=== PATIENT | male | born 1940 | race Caucasian/White ===

== ENCOUNTER 2019-07-01 13:39 | Outpatient (CLI) | payer MEDICARE, OTHER, SELFPAY ==
--- NOTE | 2019-07-01 14:01 | MR_ITS ---
WS: [id number] MRI HEAD WITHOUT CONTRAST TECHNIQUE: Sagittal T1, T2 axial, T2 axial FLAIR, axial and coronal T1 images, axial susceptibility w eighted imaging, axial diffusion weighted images, and coronal T2 images were obtained. CLINICAL INFORMATION: HEADACHE COMPARISON: CT head FINDINGS: No evidence of restricted diffusion to suggest acute ischemia. Ventricular system and basal cisterns are patent. No hydrocephalus. Mild small vessel changes. Moderate parenchymal volume loss. Normal vascular flow voids at the skull base. No extra-axial fluid collections. Paranasal sinuses are well aerated. Mastoid air cells are wel l aerated. No hemosiderin on susceptibly weighted images. Normal optic chiasm and pituitary infundibu lum. Temporal lobes and hippocampal formations demonstrate mild symmetric atrophy. MR/MR head wo con* [id number] IMPRESSION: 1. No evidence of restricted diffusion to suggest acute ischemia. 2. Mild small vessel changes with moderate parenchymal volume loss. 3. No extra-axial fluid collections. No evidence of mass or mass effect. 4. No hemosiderin on susceptibly weighted images. 5. Mild symmetric atrophy involving the temporal lobes and hippocampal formati ons.
== END 2019-07-01 13:40 | disposition home or self-care (01) ==
LOC: RADSHAW 13:53
PROVIDERS: Family Provider Family Medicine; Visit Provider Family Medicine
DX: R51 Headache (principal)
CPT/HCPCS: 70551

== ENCOUNTER 2021-05-16 09:40 | Emergency (ER) | payer MEDICARE, OTHER, SELFPAY ==
[2021-05-16 09:54] VITALS: BP 170/97; PULSE 54; RESP 16; TEMP 36.9; O2SAT 97; BMI 31.5
--- NOTE | 2021-05-16 11:22 | ECG_ITS ---
[facility] Test Date: 2021-05-16 Pat Name: Stiven Washington Department: Room: Gender: Male Grades 1 Thru 5 Teacher: : 1940 Requested By: Prashanth Christensen Order Number: [id number] Iggy MD: Deric Thomas M.D. Measurements Intervals [place] Rate: 48 P: 46 FL: 146 QRS: 4 QRSD: 89 T: 39 QT: 466 QTc: 420 Interpretive Statements SINUS BRADYCARDIA POSSIBLE LEFT ATRIAL ENLARGEMENT [-0.1mV P-WAVE IN V1/V2] Compared to ECG 03/29/2019 12:27:35 No significant changes Electronically Signed On 05-16-2021 22:44:06 EXCEPTIONAL NEEDS TEACHER by Deric Thomas M.D. [email or web address] [email or web address] [email or web address] surgical hospital.[id number]
[2021-05-16 11:36] VITALS: BP 173/90; PULSE 84; RESP 16; O2SAT 96
[2021-05-16 12:02] LABS: Basophils % 0.6 %; Eosinophils # 0.1 10^3/uL (0.0-0.8); Eosinophils % 1.3 %; Hematocrit 39.5 % (42.0-52.0); Hemoglobin 13.8 g/dL (11.7-16.6); Lymphocytes # 2.5 10^3/uL (0.8-4.8); Lymphocytes % 39.1 %; Mean Corpuscular HGB Conc 34.9 g/dL (30.0-36.0); Mean Corpuscular Hemoglobin 32.2 pg (28.0-34.0); Mean Corpuscular Volume 92.3 fl (80-94); Mean Platelet Volume 11.8 fL (7.4-10.4); Monocytes # 0.7 10^3/uL (0.2-0.9); Monocytes % 10.6 %; Neutrophils # 3.06 10^3/uL (1.8-7.7); Neutrophils % 48.1 %; Nucleated Red Blood Cells % 0 %; Platelet Count 173 10^3/cmm (130-400); Red Blood Count 4.28 10^6/uL (4.1-5.3); Red Cell Distribution Width 13.7 % (12.1-15.1); White Blood Count 6.4 10^3/uL (4.0-10.0)
--- NOTE | 2021-05-16 12:05 | XR_ITS ---
WS: [id number] Exam: XR chest 1V portable [id number] Date/Time of Exam: 05/16/2021 12:05 PM Reason For Exam: dyspnea/cough Comparison 03/29/2019. The lungs are clear and fully expanded. Normal cardiomediastinal silhouette. Costophrenic angles are sharp. No pleural effusion. Bony structures are intact. XR/XR chest 1V portable [id number] IMPRESSION: 1. No acute cardiopulmonary finding.
--- NOTE | 2021-05-16 12:13 | W.ED.GENADLT ---
HPI - General Adult General: Chief complaint: General Medical Stated complaint: SENT BY PCP FOR SPIKING B/P Time Seen by Provider: 05/16/21 11:19 History of Present Illness: HPI narrative: 80-year-old male presents emergency room with complaint of increased blood pressure. Blood pressure is elevated and he is having palpitations for last couple of days. He was seen previously for this and supposed to be set up for stress test at [facility] logistical complication happened and that was never completed. His blood pressures been in the 170s and 180s at home he denies any difficulty speech swallowing or vision. He is not having difficulty breathing denies any chest pain. He currently takes metoprolol for blood pressure but no other medications. Onset (ago): hour(s) Severity: moderate Relieving factors: none Exacerbating factors: none Associated symptoms: Deny chest pain, confusion, cough, diaphoresis, decreased appetite, dyspnea, fevers/chills, headache(s), malaise, nausea, rash, palpitations, seizures, short of breath, syncope, vomiting or weakness Treatments prior to arrival: none Review of Systems Const: Denies: malaise or diaphoresis ENMT: Denies: throat pain, ear or mastoid pain, nasal discharge or nasal congestion Card: Denies: chest pain, palpitations or syncope Resp: Denies: dyspnea GI: Denies: nausea or vomiting : Denies: flank pain, dysuria, urinary frequency or urinary urgency Skin/Breast: Denies: rash Neuro: Denies: headache(s) or confusion PFSH ED PFSH: Medical History Chest pain Dyspnea GERD (gastroesophageal reflux disease) Family History Grandfather CAD (coronary artery disease) later in life Father Cancer Dementia Mother Dementia Denies family history of Diabetes Clotting disorder Chronic kidney disease (CKD) Suicide Anesthesia complication Bleeding disorder Lung disease Stroke Social History Smoking and tobacco status: former smoker Alcohol intake: never Physical Exam Const: COMMON NORMALS: no acute distress GENERAL APPEARANCE: cooperative and comfortable ORIENTATION/CONSCIOUSNESS: Yes awake, Yes oriented to person, Yes oriented to place and Yes oriented to time HENMT: COMMON NORMALS: normocephalic, atraumatic and hearing grossly normal bilaterally HEAD & SCALP: normocephalic and atraumatic Neck/C-Spine: COMMON NORMALS: no JVD Resp: COMMON NORMALS: normal respiratory effort, No retractions, No use of accessory muscles and clear to auscultation bilaterally AUSCULTATION: clear to auscultation bilaterally Cardio: COMMON NORMALS: no JVD, regular rate, regular rhythm and No murmurs present (Cardio) RATE: regular rate RHYTHM: regular rhythm GI: COMMON NORMALS: Soft to palpation and No hepatosplenomegaly present AUSCULTATION: Yes normoactive bowel sounds PALPATION: Yes Soft to palpation, No Tenderness to palpation present (GI), No Guarding due to palpation present (GI) and Yes No hepatosplenomegaly present Extremity: COMMON NORMALS: normal to inspection, capillary refill normal, no clubbing, cyanosis or edema, no calf tenderness and no pedal edema Neuro: SENSORIUM/ORIENTATION: Yes oriented to person, Yes oriented to place and Yes oriented to time Skin: COMMON NORMALS: no rashes or lesions noted GENERAL SKIN EXAM: no rashes or lesions noted Course Vital Signs: Vital signs: Vital Signs Temperature 98.5 F 05/16/21 09:54 Pulse Rate 59 L 05/16/21 15:38 Respiratory Rate 18 05/16/21 14:19 Blood Pressure 146/87 05/16/21 15:38 Pulse Oximetry 97 05/16/21 15:38 MDM - General Adult MDM Narrative: Medical decision making narrative: Labs imaging EKG reviewed with patient. He is still having some dyspnea on exertion. Patient does need stress test. This is already been initiated evidently through his metabolic specialist office recommend that he contact metabolic specialist office and they can complete the process. Suspect there may be a prior authorization in process. He is not having any chest pain at this time. Have him add amlodipine and isosorbide mononitrate as well as aspirin. Have him follow-up with his metabolic specialist within the next few days return if has further problems. Lab Data: Labs: Lab Results 05/16/21 05/16/21 05/16/21 11:33 11:33 11:33 WBC 6.4 10^3/uL 10^3/ uL (4.0-10.0) RBC 4.28 10^6/uL 10^6 /uL (4.1-5.3) Hgb 13.8 g/dL g/dL (11.7-16.6) Hct 39.5 % L % (42.0-52.0) MCV 92.3 fl fl (80-94) MCH 32.2 pg pg (28.0-34.0) MCHC 34.9 g/dL g/dL (30.0-36.0) RDW 13.7 % % (12.1-15.1) Plt Count 173 10^3/cmm 10^3 /cmm (130-400) MPV 11.8 fL H fL (7.4-10.4) Neut % (Auto) 48.1 % % Lymph % (Auto) 39.1 % % Avery % (Auto) 10.6 % % Eos % (Auto) 1.3 % % Baso % (Auto) 0.6 % % Neut # (Auto) 3.06 10^3/uL 10^3 /uL (1.8-7.7) Lymph # (Auto) 2.5 10^3/uL 10^3/ uL (0.8-4.8) Avery # (Auto) 0.7 10^3/uL 10^3/ uL (0.2-0.9) Eos # (Auto) 0.1 10^3/uL 10^3/ uL (0.0-0.8) Baso # (Auto) 0.0 10^3/uL 10^3/ uL (0.0-0.1) Nucleated RBC % (a uto) 0 % % Nucleated RBCs # 0.0 /100WBC /100W BC Sodium 136 mmol/L mmol/L (136-145) Potassium 4.5 mmol/L mmol/L (3.5-5.1) Chloride 102 mmol/L mmol/L (98-107) Carbon Dioxide 24 mmol/L mmol/L (22-29) Anion Gap 14.5 (5-19) BUN 17 mg/dL mg/dL (8-23) Creatinine 0.6 mg/dL L mg/dL (0.7-1.2) GFR Calculation Not Reportable Glucose 92 mg/dL mg/dL (65-115) Calculated Osmolal ity 283 mOsm/kg L mOs m/kg (285-295) Calcium 8.5 mg/dL mg/dL (8.5-10.5) Total Bilirubin 0.4 mg/dL mg/dL (0.15-1.2) AST 14 U/L U/L (0-40) ALT 10 U/L U/L (0-41) Alkaline Phosphata se 53 IU/L IU/L (40-130) Troponin T Baselin e 18 ng/L H ng/L (0-15) Troponin T 120 Min jacqui Delta Troponin T Total Protein 6.1 g/dL L g/dL (6.6-8.7) Albumin 3.7 g/dL g/dL (3.5-5.2) Globulin 2.4 g/dL g/dL (1.3-4.6) Urine Color Urine Appearance Urine pH Ur Specific Gravit y Urine Protein Urine Glucose (UA) Urine Ketones Urine Blood Urine Nitrate Urine Bilirubin Urine Urobilinogen Ur Leukocyte Susan ase Urine RBC Urine WBC Ur Squamous Epith Cells Amorphous Sediment Urine Bacteria Urine Mucus 05/16/21 05/16/21 11:56 13:47 WBC RBC Hgb Hct MCV MCH MCHC RDW Plt Count MPV Neut % (Auto) Lymph % (Auto) Avery % (Auto) Eos % (Auto) Baso % (Auto) Neut # (Auto) Lymph # (Auto) Avery # (Auto) Eos # (Auto) Baso # (Auto) Nucleated RBC % (a uto) Nucleated RBCs # Sodium Potassium Chloride Carbon Dioxide Anion Gap BUN Creatinine GFR Calculation Glucose Calculated Osmolal ity Calcium Total Bilirubin AST ALT Alkaline Phosphata se Troponin T Baselin e Troponin T 120 Min jacqui 16.42 ng/L H ng/L (0-15) Delta Troponin T -1.58 ABS# L ABS# (0-10) Total Protein Albumin Globulin Urine Color Yellow (Yellow) Urine Appearance Clear (CLEAR) Urine pH 5 (5-7) Ur Specific Gravit y 1.020 (1.005-1.030) Urine Protein 1+ H (Negative) Urine Glucose (UA) Norm (Normal) Urine Ketones 1+ H (Negative) Urine Blood Neg (Negative) Urine Nitrate Negative (Negative) Urine Bilirubin Neg (Negative) Urine Urobilinogen Norm mg/dL mg/dL (Negative) Ur Leukocyte Susan ase Negative (Negative) Urine RBC None /hpf /hpf (0-2) Urine WBC 0-4 /hpf H /hpf (0-5) Ur Squamous Epith Cells 0-4 /hpf H /hpf (0-5) Amorphous Sediment Not Reportable Urine Bacteria Trace /hpf /hpf (NONE) Urine Mucus Trace /hpf /hpf Discharge Plan Discharge Patient Disposition: Home Clinical Impression: Hypertensive urgency, HUGO (dyspnea on exertion) Condition: Stable Prescriptions: New isosorbide mononitrate 30 mg tablet extended release 24 hr 30 mg PO DAILY Qty: 30 RF: 0 amlodipine 10 mg tablet 10 mg PO DAILY Qty: 30 RF: 0 aspirin 81 mg tablet,delayed release (DR/EC) 81 mg PO DAILY Qty: 30 RF: 0 No Action Xtandi 40 mg tablet 160 mg PO BEDTIME RF: 0 omeprazole 20 mg capsule,delayed release(DR/EC) 20 mg PO QAM RF: 0 metoprolol tartrate 25 mg tablet See Rx Instructions .ROUTE .COMPLEX RF: 0 nitroglycerin [Nitrostat] 0.4 mg tablet, sublingual 0.4 mg sublingual Q5M PRN (Reason: chest pain) 30 Days Qty: 30 RF: 0 zinc 50 mg Tablet 50 mg PO DAILY RF: 0 Vitamin D3 125 mcg (5,000 unit) Tablet 125 mcg PO DAILY RF: 0 Cardio-Plus 2 tab PO BID RF: 0 Curcumin Tabs 1 tab PO QAM RF: 0 Otc Gallbladder Pill 2 tab PO BID RF: 0 Discharge Orders: Discharge ED (Routine); Ordered 05/16/21 Ordered By: Prashanth Lemons Referrals: Aamir Beltre [Primary Care Provider] - Patient Instructions: Opioid Safety Coding Level of Care Code ED Facilities Engineering Manager for Saad Bahena
[2021-05-16 12:24] LABS: Alanine Aminotransferase 10 U/L (0-41); Albumin Level 3.7 g/dL (3.5-5.2); Alkaline Phosphatase 53 IU/L (40-130); Aspartate Amino Transferase 14 U/L (0-40); Blood Urea Nitrogen 17 mg/dL (8-23); Calcium 8.5 mg/dL (8.5-10.5); Carbon Dioxide 24 mmol/L (22-29); Chloride 102 mmol/L (98-107); Globulin 2.4 g/dL (1.3-4.6); Glucose 92 mg/dL (65-115); Osmolality Calculated 283 mOsm/kg (285-295); Sodium 136 mmol/L (136-145); Total Bilirubin 0.4 mg/dL (0.15-1.2); Total Protein 6.1 g/dL (6.6-8.7)
[2021-05-16 12:25] LABS: Anion Gap 14.5 (5-19); Potassium 4.5 mmol/L (3.5-5.1); Troponin(5th) Baseline 18 ng/L (0-15)
[2021-05-16 12:31] VITALS: BP 181/91; PULSE 53; RESP 18; O2SAT 95
[2021-05-16] MEDS: hyDRALAzine 20 mg/mL INJ 1 mL 10 MG IVP ×2 (13:17→14:19)
[2021-05-16] MEDS: amlodipine 10 mg Tablet PO (13:17)
--- NOTE | 2021-05-16 13:22 | ECG_ITS ---
[facility] Test Date: 2021-05-16 Pat Name: Stiven Washington Department: Room: Gender: Male Electronic Security Technician: : 1940 Requested By: Prashanth Christensen Order Number: [id number] Iggy MD: Deric Thomas M.D. Measurements Intervals [place] Rate: 53 P: 50 CO: 146 QRS: -1 QRSD: 106 T: 40 QT: 468 QTc: 439 Interpretive Statements SINUS BRADYCARDIA POSSIBLE LEFT ATRIAL ENLARGEMENT [-0.1mV P-WAVE IN V1/V2] Compared to ECG 05/16/2021 11:27:28 No significant changes Electronically Signed On 05-16-2021 22:51:45 GRADE TEACHER by Deric Thomas M.D. [id number]
[2021-05-16 13:39] LABS: Add Urine Microscopic? YES; Bilirubin Urine Neg (Negative); Blood Urine Neg (Negative); Glucose Urine UA Norm (Normal); Ketones Urine 1+ (Negative); Leukocyte Esterase Urine Negative (Negative); Nitrate Urine Negative (Negative); Protein Urine 1+ (Negative); Urine Appearance Clear (CLEAR); Urine Color Yellow (Yellow); Urobilinogen Urine Norm (Negative); pH Urine 5 (5-7)
[2021-05-16 13:41] LABS: WBC Urine 0-4 /hpf (0-5)
[2021-05-16 13:42] LABS: Add Urine Culture? No; Bacteria Urine TRACE /hpf; Mucus Urine TRACE /hpf; Squamous Epithelial Cell Urine 0-4 /hpf (0-5)
[2021-05-16 14:19] VITALS: BP 183/105; PULSE 54; RESP 18; O2SAT 98
[2021-05-16] MEDS: enalaprilat 1.25 mg/mL Inj IVP (14:19)
[2021-05-16] MEDS: lisinopril 10 mg Tablet 20 MG PO (14:19)
[2021-05-16 14:29] LABS: Troponin 5 2HR 16.42 ng/L (0-15)
[2021-05-16 14:30] LABS: Troponin 5 2HR Delta -1.58 ABS# (0-10)
[2021-05-16 15:38] VITALS: BP 146/87; PULSE 59; O2SAT 97
== END 2021-05-16 15:37 | disposition home or self-care (01) ==
PROVIDERS: Physician Assistant; Emergency Provider Family Medicine; PCP Student in an Organized Health Care Education/Training Program
DX: R06.00 Dyspnea, unspecified (principal); I16.0 Hypertensive urgency; Z87.891 Personal history of nicotine dependence
CPT/HCPCS: 36415; 71045; 80053; 81001; 84484; 85025; 93005; 96374; 96375; 99283; J0360; J3490

== ENCOUNTER 2021-05-22 07:36 | Outpatient (CLI) | payer MEDICARE, OTHER, SELFPAY ==
[2021-05-22 07:40] VITALS: BMI 32.3
--- NOTE | 2021-05-22 07:42 | ECG_ITS ---
[facility] Test Date: 2021-05-22 Pat Name: Stiven Washington Department: Room: Gender: Male Finisher Brush: : 1940 Requested By: Deric Thomas Order Number: [id number] Iggy MD: Deric Thomas M.D. Interpretive Statements NAME OF STUDY: LEXISCAN SESTAMIBI STRESS TEST INDICATION: Chest Pain,/ RESULTS TO CATARINA TORRES PROCEDURE: At the baseline, the EKG revealed sinus bradycardia with a rate of 54 bpm. The baseline blood pressure was 162/98 mm Hg with a heart rate of 56 beats/min. Lexiscan was infused over a period of 20 seconds. A total of 0.4 milligrams of Lexiscan was infused. The stress phase was continued for a total of 5 minutes. Heart rate at the end of the stress phase was 86 with a blood pressure 116/77. The EKG at the peak infusion revealed no significant changes. Sestamibi was injected 20 seconds after the Lexiscan infusion. Blood pressure at the end of the recovery phase was 135/88 with a heart rate of 73 per minute. CONCLUSION: 1. No significant EKG changes with the LexiScan infusion 2. No LexiScan induced chest pain or cardiac arrhythmia 3. Normal blood pressure and heart rate response 4. Sestamibi/sestamibi perfusion scan pending; see separate report. Electronically Signed On 06-01-2021 10:18:03 INSULATION CUTTER by Deric Thomas M.D. [id number]
--- NOTE | 2021-05-22 07:43 | NMCV_ITS ---
NM dex perf SPECT r/s* [id number] Stiven Washington Age: 80 Gender: M : 1940 Exam Date: 05/22/2021 07:43 Ordering Phys: Deric Thomas MD ([email or web address]) Technologist: MYRON Martinez Exam Location: [facility] Indications: SHORTNESS OF BREATH, CHEST PAIN STRESS TEST Please see separate stress test report in [facility] for full findings IMAGE PROTOCOL Rest/Stress 1 Lexiscan Day Radiopharmaceutical Dose (mCi) Administration Site Administered by Rest: Tc-99m 10.8 IV MYRON Ledesma Sestamibi Stress:Tc-99m 33.0 IV MYRON Martinez Sestamigerardo Rest: 22-May-2021 60 Discovery 630 Stress: 22-May-2021 30 Discovery 630 0.4mg Lexiscan. Supine position only as patient was unable to lay prone. SPECT RESULTS Technical Quality: Excellent Raw Data Analysis: Normal Image Corrections: No attenuation or motion correction applied Summed Stress Score: 1 Summed Rest Score: 2 Summed Difference Score: 1 PERFUSION FINDINGS A small area of slightly decreased tracer uptake in the apical anterior wall region with some reversibility. FUNCTIONAL RESULTS (calculated via Gated SPECT) Stress Image LV EF (%): 75 Stress EDV (mL):76 TID: 1.21 Stress ESV (mL):19 FUNCTIONAL FINDINGS: Segmental wall motion analysis revealing no gross wall motion normalities. IMPRESSIONS 1. Myocardial perfusion imaging revealing small area of reversible defect in the apical anterior wall region, suggestive of ischemia in the distribution of the left anterior descending artery. Elevated transient ischemic dilatation ratio also may suggest endocardial ischemia. (1.21). 2. Normal LV ejection fraction 75%. 3. LV wall motion analysis revealing no gross wall motion abnormalities. 4. Normal LV volume. No similar previous studies are available for comparison Dr Deric Thomas MD [facility] (Electronically Signed) Final Date: 30 May 2021 06:00 S
[2021-05-22] MEDS: regadenoson 0.4 Mg/5 ml Syringe IVP (09:57)
[2021-05-22 10:14] VITALS: BP 135/88; PULSE 76
== END 2021-05-22 07:37 | disposition home or self-care (01) ==
LOC: CDL 07:37
PROVIDERS: PCP Student in an Organized Health Care Education/Training Program; Visit Provider Internal Medicine Cardiovascular Disease
DX: R07.9 Chest pain, unspecified (principal); R06.02 Shortness of breath
CPT/HCPCS: 78452; 93017; A9500; J2785

== ENCOUNTER → 2021-09-11 11:36 | Outpatient (BNVA) | payer MEDICARE, OTHER, SELFPAY | PROVIDERS: PCP Student in an Organized Health Care Education/Training Program; Visit Provider Internal Medicine Cardiovascular Disease | DX: R94.39 Abnormal result of other cardiovascular function study (principal); R07.89 Other chest pain; R03.0 Elevated blood-pressure reading, without diagnosis of hypertension; R06.00 Dyspnea, unspecified; I47.1 Supraventricular tachycardia; Z87.891 Personal history of nicotine dependence | CPT/HCPCS: 80048; 85025; 85610; 86850; 86900; 87635; 99215 ==

== ENCOUNTER 2021-09-11 12:44 | Outpatient (CLI) | payer MEDICARE, OTHER, SELFPAY ==
[2021-09-11 13:41] LABS: Basophils # 0.1 10^3/uL (0.0-0.1); Basophils % 0.9 %; Eosinophils # 0.1 10^3/uL (0.0-0.8); Eosinophils % 1.2 %; Hematocrit 39.7 % (42.0-52.0); Hemoglobin 13.3 g/dL (11.7-16.6); Lymphocytes # 1.9 10^3/uL (0.8-4.8); Lymphocytes % 33.1 %; Mean Corpuscular HGB Conc 33.5 g/dL (30.0-36.0); Mean Corpuscular Volume 95.7 fl (80-94); Mean Platelet Volume 11.2 fL (7.4-10.4); Monocytes # 0.7 10^3/uL (0.2-0.9); Monocytes % 11.5 %; Neutrophils # 3.03 10^3/uL (1.8-7.7); Neutrophils % 52.8 %; Nucleated Red Blood Cells % 0 %; Platelet Count 157 10^3/cmm (130-400); Red Blood Count 4.15 10^6/uL (4.1-5.3); Red Cell Distribution Width 12.9 % (12.1-15.1); White Blood Count 5.7 10^3/uL (4.0-10.0)
[2021-09-11 13:52] LABS: Prothrombin Time (Patient) 12.4 Seconds (12.0-15.1)
[2021-09-11 14:12] LABS: Anion Gap 13.5 (5-19); Blood Urea Nitrogen 16 mg/dL (8-23); Calcium 8.8 mg/dL (8.5-10.5); Carbon Dioxide 26 mmol/L (22-29); Chloride 105 mmol/L (98-107); Glucose 106 mg/dL (65-115); Osmolality Calculated 292 mOsm/kg (285-295); Potassium 4.5 mmol/L (3.5-5.1); Sodium 140 mmol/L (136-145)
[2021-09-11 15:27] LABS: Adenovirus Not Detected (NOT DETECT); Chlamydia Pneumoniae Not Detected (NOT DETECT); Coronavirus 229E,HKU1,NL63,OC4 Not Detected (NOT DETECT); Human Metapneumovirus Not Detected (NOT DETECT); Human Rhinovirus/Enterovirus Not Detected (NOT DETECT); Influenza A Not Detected (NOT DETECT); Influenza A H1 Not Detected (NOT DETECT); Influenza A H1-2009 Not Detected (NOT DETECT); Influenza A H3 Not Detected (NOT DETECT); Influenza B Not Detected (NOT DETECT); Mycoplasma Pneumoniae Not Detected (NOT DETECT); Parainfluenza Virus Type 1 Not Detected (NOT DETECT); Parainfluenza Virus Type 2 Not Detected (NOT DETECT); Parainfluenza Virus Type 3 Not Detected (NOT DETECT); Parainfluenza Virus Type 4 Not Detected (NOT DETECT); Respiratory Syncytial Virus A Not Detected (NOT DETECT); Respiratory Syncytial Virus B Not Detected (NOT DETECT); SARS-COV-2 Not Detected (NOT DETECT)
== END 2021-09-11 12:45 | disposition home or self-care (01) ==
LOC: LAB 12:47
PROVIDERS: PCP Student in an Organized Health Care Education/Training Program; Visit Provider Internal Medicine Cardiovascular Disease
DX: R94.39 Abnormal result of other cardiovascular function study (principal); R07.89 Other chest pain
CPT/HCPCS: 80048; 85025; 85610; 86850; 86900; 87635

== ENCOUNTER 2021-09-17 09:50 | Observation (INO) | payer MEDICARE, OTHER, SELFPAY ==
[2021-09-17] VITALS (34 sets, daily range): BP systolic 127–176; BP diastolic 70–107; PULSE 47–70; RESP 13–24; TEMP 35.6–36.7; O2SAT 94–98; BMI 34.2
--- NOTE | 2021-09-17 06:03 | XACV_ITS ---
Exam Room: 2 Ht: 178 cm Wt: 108 kg BSA: 2.35 m2 Gender: Male : 1940 Exam Priority: Routine Procedure(s): Procedure Description: Diagnostic procedure Procedure Description: PCI procedure Procedure Description: Drug Eluting Coronary Stent Procedure Description: PTCA Procedure Description: Coronary Atherectomy Procedure Description: Miscellaneous Procedure Description: ACT Procedure Description: Coronary Angiography William NUÑEZ; Diagnostic Cath Status: Elective Diagnostic Findings * Left anterior descending artery is a medium caliber vessel which wrap around the LV apex minimally. The proximal segment of the LAD was found to have diffuse disease which tapers to a high-grade stenosis of around 95% towards the origin of the first diagonal branch. The first diagonal branch was found to have 60 to 70% diffuse disease. The left anterior descending artery was found to have high-grade stenosis of 70 to 80% at the mid segment and in the distal segment of the artery.. * The left circumflex artery is a medium caliber vessel which gives off multiple obtuse marginal branches. The first obtuse marginal branches are now around 60% ostial narrowing. The second obtuse marginal artery was found to have minimal intimal irregularities near to the ostium. * The right coronary artery is a medium to large caliber ectatic vessel which was found to have 20 to 40% diffuse narrowing in the proximal ,mid and distal segments. The PLV branch was found to have a 50 to 60% ostial narrowing in one of the side branches. PCI Status: Elective PCI Indication: New Onset Angina <= 2 months Interventional Findings * Procedure detail: We engaged left main artery with XB 3.5 guide catheter. 0.014 run-through guidewire was used to cross LAD stenosis and was put in distal vessel. We initially performed balloon angioplasty of proximal to distal vessel using 2.5 x 15 mm semicompliant balloon. This was followed by placement of 3.0 x 38 mm resolute Bandar drug-eluting stent in proximal LAD. There was an intervening area that was not covered with stents. We placed a stent in mid LAD measuring 2.75 x 12 mm. Proximal stent was postdilated with 3.25 x 12 mm NC balloon. At this time apical vessel was noted to have some wire dissection. There was nonflow limiting. We left it for medical therapy later. Guidewire and guide catheter were removed. Patient left the D[facility] Pipeman in a stable condition.. * Proximal Left Anterior Descendin% stenosis treated with a AB TREK 2.50X15 RX BALLOON, AB TREK 3.00X15 RX BALLOON, MDT NC EUPHORA RX [id number] BALLOON, and MDT R BANDAR 3.0X38 MARLYN. * Mid Left Anterior Descendin% stenosis treated with a AB TREK 2.50X15 RX BALLOON. * Mid Left Anterior Descendin% stenosis treated with a MDT R BANDAR 2.75X12 MARLYN. * Distal Left Anterior Descendin% stenosis treated with a MDT R BANDAR 2.75X30 MARLYN. Conclusions 1. This is an 81-year-old white male with a history of hypertension, dyslipidemia and COPD, presents with increasing shortness of breath and some chest discomfort. He had a myocardial perfusion imaging which revealed a small area of ischemia in the distribution of the left anterior descending artery. Because of the ongoing worsening of the symptoms, in order to further evaluate the coronary status, a cardiac catheterization was recommended. Patient underwent left heart catheterization with left and right coronary angiogram and LV angiogram today. The findings are as follows. 2. High-grade multiple lesions in the left anterior descending artery including the proximal segment. Mild to moderate disease in the circumflex artery and mild diffuse disease in the right coronary artery. LVEDP of 17 mmHg. LV ejection fraction of 50%. Wall motion normalities as mentioned above. 3. Status post successful revascularization of proximal to distal LAD with MARLYN x3. 4. Proximal Left Anterior Descending was treated with a Balloon, Balloon, Balloon, and Drug Eluting Stent. 5. Mid Left Anterior Descending was treated with a Balloon. 6. Mid Left Anterior Descending was treated with a Drug Eluting Stent. 7. Distal Left Anterior Descending was treated with a Drug Eluting Stent. Recommendations * Aspirin and Plavix for at least 1 year. * Transfer to [facility]. * High intensity statin therapy. * Outpatient cardiology follow-up in 4 weeks. Interventional RX Recommendation: PCI w/o planned CABG Diagnostic RX Recommendation: PCI w/o planned CABG Anticoagulation: Heparin Ventriculography Ejection Fraction: 50.0 % Left Ventriculography Findings: * LV gram was performed in the DAVILA projection. The study was of suboptimal quality. The LV gram revealed mild hypokinesia of the anteroapical region. No filling defects were noted. The LVEDP was 17 mmHg. The LV ejection fraction was estimated to be around 50%. Pressures Phase:Rest AO : 105 / 65 ( 84 ) @ 8:32:00 AM 148 / 73 ( 104 ) @ 8:43:00 AM 150 / 74 ( 104 ) @ 8:43:00 AM 130 / 71 ( 96 ) @ 8:59:00 AM 119 / 66 ( 90 ) @ 9:06:00 AM 172 / 87 ( 124 ) @ 9:09:00 AM 161 / 90 ( 119 ) @ 9:51:00 AM 145 / 73 ( 102 ) @ 9:58:00 AM LV : 148 / 0 / 17 @ 8:42:00 AM 142 / 0 / 26 @ 8:43:00 AM 145 / 0 / 24 @ 8:43:00 AM Valves Phase:DefaultPhase AV : 0.0 @ 9:38:31 AM AV Mean Gradient: 0.0 @ 9:38:31 AM Clinical Evaluation EBL: 5mL-10mL Procedural Details Procedure Consent Obtained. Admit Source: Out Patient. Pre-Procedure Time Out. Identified patient by full name and date of as verbalized by the patient/guarantor. Does the consent match the physician's order: Yes. Accurate & Complete Informed Consent: Yes. Inpatient/Outpatient History & Physical on Chart: Yes. If H&P is completed, is and addenduem needed: N/A; If yes, is the addendum complete: N/A. Visualize and Verify Site with Patient/Guarantor: N/A. Relevant Radiology Images available: N/A. The risks, benefits, and alternatives of sedation and/or procedure were discussed by physician. The patient agrees to continue. Procedure started. [facility] Clinical Fraility Score: 3: Managing Well. Dredge Pipeman Indications: Worsening Angina. Chest Pain Symptom Assessment: Atypical Angina. Correct patient, site and procedure confirmed by cath team. Current diagnosis: Chest Pain. PERRLA. 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 Lungs clear x 5 lobes. IV Site on Arrival: 20 gauge in the right anticubital. IV Fluids: 0.9% NaCl at KVO. 0 mL infused prior to laboratory animal caretaker. Pre Procedural Pulses: bilateral dorsalis pedis was 3+. Pre Procedural Pulses: bilateral radial was 2+. Oxygen started at 2liters/min via nasal canula. right groin was prepped with chloroprep then draped in the usual sterile fashion. right radial was prepped with chloroprep then draped in the usual sterile fashion. Physician notified. Baseline sample Acquired. HR: 55 BPM. Physician arrived. Physician scrubbed in. Immediate Pre-Procedure Time Out. Correct Patient: Yes; Correct Procedure: Yes; Correct Site: Yes; Correct Patient Position: Yes; Correct Supplies: Yes; Dried Flammable Prep: Yes; Blood Products Available: N/A;. IV to R AC infiltrated. IV discontinued and new 20g IV started in L AC. Lidocaine 1% infiltrated to the right radial. Arterial access obtained. A 5french Spike catheter in over wire. Multiple views taken of left coronary artery. Catheter out. A 5 italian JR4 catheter in over wire. Multiple views taken of right coronary artery. Catheter out. A 5 italian Angled Pig catheter in over wire. EDP Sample taken: LV 148/-1,17; HR: 60 BPM; SpO2: 98%. LV gram performed in DAVILA @ 10 mL/second for a total of 30 mL. EDP Sample taken: LV 142/0,26; HR: 55 BPM; SpO2: 98%. Pullback taken: LV 145/-1,24; AO 148/73(104); Mean: 0mmHg, Peak to Peak: 0mmHg, SEP: 13sec/min; HR: 58 BPM; SpO2: 98%. Catheter out. Dr Fam notified to review films. Patient's family updated. Side port of raidal sheath flushed periodically to maintain patencey. Physician scrubbed out. Physician review of cine films. ACT drawn. Results 153 seconds. Therapeutic limits - pre-heparin administration 90-150 seconds and monitoring heparin during a vascular procedure >[address] Fam scrubbed in to perform intervention. 6 italian XB 3.5 guide catheter was inserted over the wire. Runthrough guidewire was advanced through the guide catheter to lesion in the mid LAD. Balloon inserted to lesion in the mid LAD. Inflation number : 1 A AB TREK 2.50X15 RX BALLOON was prepped and advanced across the Mid LAD , then inflated to 8 XIN for 0:21 seconds. Inflation number: 2 The AB TREK 2.50X15 RX BALLOON was reinflated across the Mid LAD, to 10 XIN for 0:20 seconds. Inflation number: 1 The AB TREK 2.50X15 RX BALLOON was reinflated across the Prox LAD, to 12 XIN for 0:28 seconds. Results checked. Inflation number: 3 The AB TREK 2.50X15 RX BALLOON was reinflated across the Mid LAD, to 12 XIN for 0:16 seconds. Inflation number: 4 The AB TREK 2.50X15 RX BALLOON was reinflated across the Mid LAD, to 10 XIN for 0:15 seconds. Inflation number: 2 The AB TREK 2.50X15 RX BALLOON was reinflated across the Prox LAD, to 12 XIN for 0:15 seconds. Inflation number: 3 The AB TREK 2.50X15 RX BALLOON was reinflated across the Prox LAD, to 12 XIN for 0:12 seconds. Balloon out. Results checked. Balloon inserted to lesion in the prox LAD. Family updated. Inflation number : 4 A AB TREK 3.00X15 RX BALLOON was prepped and advanced across the Prox LAD , then inflated to 12 XIN for 0:26 seconds. Balloon out. ACT drawn. Results 197 seconds. Therapeutic limits - pre-heparin administration 90-150 seconds and monitoring heparin during a vascular procedure >250 seconds. After numerous attempts, the physicians was unable to cross the lesion with the 2.75 x 30mm stent. Coronary Viperwire advanced across the proximal LAD lesion. Runthrough wire removed. 1.0x10mm Sapphire OTW Balloon inserted to lesion in the mid LAD for support. Balloon out. Coronary atherectomy device inserted. AP pads applied to patient chest. ACT drawn. Results 230 seconds. Therapeutic limits - pre-heparin administration 90-150 seconds and monitoring heparin during a vascular procedure >250 seconds. Orbial atherectomy performed to Prox LAD. Coronary atherectomy device removd. 1.0x10 Sapphire balloon inserted OTW. Viper wire removed. 300cm Runthrough guidewire was advanced through the guide catheter to lesion in the mid LAD. Balloon inserted to lesion in the prox LAD. Inflation number: 5 The AB TREK 3.00X15 RX BALLOON was reinflated across the Prox LAD, to 12 XIN for 0:26 seconds. Inflation number: 6 The AB TREK 3.00X15 RX BALLOON was reinflated across the Prox LAD, to 14 XIN for 0:20 seconds. Balloon out. Stent inserted to lesion in the distal LAD. Inflation Number : 1 A MDT R BANDAR 2.75X30 MARLYN -Lot Number# [id number] Exp 06/04/24 was prepped and advanced across the Dist LAD. The stent was deployed at 10 XIN for 0:27 seconds. Stent balloon out over wire. ACT drawn. Results 358 seconds. Therapeutic limits - pre-heparin administration 90-150 seconds and monitoring heparin during a vascular procedure >250 seconds. Inflation number : 7 A MDT NC EUPHORA RX 3.33A83GY BALLOON was prepped and advanced across the Prox LAD , then inflated to 16 XIN for 0:42 seconds. Balloon out. Balloon inserted to lesion in the prox LAD. Angiography performed, checking results. Stent inserted to lesion in the prox LAD. Inflation Number : 8 A MDT R BANDAR 3.0X38 MARLYN -Lot Number# [id number] EXP 07-07-24 was prepped and advanced across the Prox LAD. The stent was deployed at 14 XIN for 0:35 seconds. Stent balloon out over wire. Stent inserted to lesion in the mid LAD. Inflation Number : 1 A MDT R BANDAR 2.75X12 MARLYN -Lot Number# [id number] EXP 12-1-24 was prepped and advanced across the Mid LAD1. The stent was deployed at 12 XIN for 0:23 seconds. Inflation number: 2 The stent balloon was then re-inflated across the Mid LAD1 to 12 XIN for 0:10 seconds. Stent balloon out over wire. Wire out. Angiography performed, checking results. ACT drawn. Results 260 seconds. Therapeutic limits - pre-heparin administration 90-150 seconds and monitoring heparin during a vascular procedure >250 seconds. Guide catheter out over standard wire. A TR Band was successful obtaining hemostatsis at the Right Radial artery insertion site. Post Procedure: Pulses reassessed and unchanged. PERRLA. 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 No VTE prophylaxis required. PCI Indication: Stable Angina, Abnormal stress test. Post-op diagnosis: Severe prox to mid LAD stenosis. Complications: None. Estimated blood loss: 5mL-10mL. Responsiveness - Normal response to verbal stimuli; alert and oriented, PERRLA. Airway - Unaffected, no intervention required; spontaneous ventilation. Circulation: W/N/L, pulses unchanged. Nausea/Vomiting: N/A. Medication's Wasted: Lidocaine 1% = 18 mL. Medication's Wasted: Nitro = 49.4 mg. Medication's Wasted: Heparin = 3000 units. Medication's Wasted: Other = Versed 2 mg. Medication's Wasted: Other = Fentanyl 100 mcg. Total IV fluids: 175 mL. Procedure completed. Patient transferred by wheelchair to 1st floor. Access Site Site: Right Radial artery Sheath Size: 6 Fr Hemostasis Method: TR Band Hemostasis Success: Successful Procedure Medications Start: 7:12 AM Stop: 7:12 AM Medication: Versed Amount: 1 mg Route: I.V. Start: 7:12 AM Stop: 7:12 AM Medication: Fentanyl Amount: 50 mcg Route: I.V. Start: 7:15 AM Stop: 7:15 AM Medication: Versed Amount: 1 mg Route: I.V. Start: 7:24 AM Stop: 7:24 AM Medication: Versed Amount: 1 mg Route: I.V. Start: 7:24 AM Stop: 7:24 AM Medication: Fentanyl Amount: 50 mcg Route: I.V. Start: 7:27 AM Stop: 7:27 AM Medication: Verapamil Amount: 5 mg Route: I.A. Start: 7:27 AM Stop: 7:27 AM Medication: Nitrogylcerin Amount: 200 mcg Route: I.A. Start: 7:30 AM Stop: 7:30 AM Medication: Heparin Amount: 5000 units Route: I.V. Start: 7:50 AM Stop: 7:50 AM Medication: Heparin Amount: 5000 units Route: I.V. Start: 7:54 AM Stop: 7:54 AM Medication: Versed Amount: 1 mg Route: I.V. Start: 7:54 AM Stop: 7:54 AM Medication: Fentanyl Amount: 50 mcg Route: I.V. Start: 7:54 AM Stop: 7:54 AM Medication: Plavix Amount: 600 mg Route: P.O. Start: 7:54 AM Stop: 7:54 AM Medication: Aspirin Amount: 325 mg Route: P.O. Start: 8:08 AM Stop: 8:08 AM Medication: Heparin Amount: 1000 units Route: I.V. Start: 8:23 AM Stop: 8:23 AM Medication: Heparin Amount: 3000 units Route: I.V. Start: 8:25 AM Stop: 8:25 AM Medication: Versed Amount: 1 mg Route: I.V. Start: 8:25 AM Stop: 8:25 AM Medication: Fentanyl Amount: 50 mcg Route: I.V. Start: 8:40 AM Stop: 8:40 AM Medication: Heparin Amount: 2000 units Route: I.V. Start: 8:49 AM Stop: 8:49 AM Medication: Versed Amount: 1 mg Route: I.V. Start: 8:49 AM Stop: 8:49 AM Medication: Fentanyl Amount: 50 mcg Route: I.V. Start: 9:18 AM Stop: 9:18 AM Medication: Nitrogylcerin Amount: 200 mcg Route: I.C. Start: 9:24 AM Stop: 9:24 AM Medication: Heparin Amount: 2000 units Route: I.V. Start: 9:26 AM Stop: 9: AM Medication: Cardene Amount: 400 mcg Route: I.C. I, the attending physician, have reviewed and verified all procedure medications. Yes, all medications given per verbal order History/Risk Factors Hypertension: Yes Dyslipidemia: No Peripheral Arterial Disease (PAD): No Myocardial Infarction (MN): No Obesity: Yes Renal Disease: No Tobacco Use: Former Prior Interventions PCI: No CABG: No Valve Surgery: No Report Signatures Interventional Workflow Finalized by Wisam Fam MD on 09/27/2021 12:17 PM Diagnostic Workflow Finalized by Dr Deric Thomas MD [facility] on 09/17/2021 08:12 PM
[2021-09-17] MEDS: diphenhydrAMINE 50 mg Capsule PO (06:20)
--- NOTE | 2021-09-17 07:11 | W.PM.OPSUD ---
Surgery/Procedure H&P Update DATE OF PROCEDURE: September 17, 2021 DATE H&P PERFORMED: 09/11/21 H&P UPDATE INFORMATION: I have reviewed H&P completed within last 30 days, I have examined patient prior to procedure and No changes to prior documentation CHANGES TO PREVIOUS DOCUMENTATION: n PRIMARY INDICATION FOR PROCEDURE: CP/SOB/Abnormal Stress test PLANNED PROCEDURE: Operation Date: 09/17/21 07:00 Proposed Procedures p Cardiac Catheterization(Left) - Deric Thomas MD PHYSICAL EXAM: alert, oriented x 3, clear to auscultation bilaterally and regular rate & rhythm AIRWAY EVAL/ANESTHESIA PLAN: normal airway, see other exam findings, ASA III, Monitored Anesthesia, Local Anesthesia, Risks, benefits & alternatives of sedation and/or procedure discussed and Patient agrees to continue as planned
--- NOTE | 2021-09-17 10:56 | PC.NURSE ---
admitted into room 112-1 from veterinary laboratory diagnostician via w/c at 0955.report received.pt is alert and awake.sb on monitor.denies pain.right wrist with tr band on and inflated.right hand is warm to touch and with brisk capillary refill.no hematoma noted.palpable radial pulse noted distal to tr band.instructed in activity restrictions s/p radial artery procedure..and instructed to notify staff for any bleeding,pain,numbness..or for any concerns at all.pt verb understanding of instructions
[2021-09-17] MEDS: carvedilol 12.5 mg Tablet PO ×2 (12:25→18:07)
[2021-09-17] MEDS: hyDRALAzine 25 mg Tablet 50 MG PO ×2 (15:19→20:27)
--- NOTE | 2021-09-17 15:49 | PC.NURSE ---
Tr Band removed. no hematoma, no bleeding, no swelling. radial pulse is palpable +3. Activity restrictions such as no pulling, no pushing or bending the wrist. Dressing applied to wrist. Instructed pt to notify nurse if there is unusual pain, numbness or pressure to right arm. pt verbalizes understanding.
[2021-09-17] MEDS: sodium chloride 0.9% 1,000 ML 100 ML IV (16:09)
[2021-09-17] MEDS: isosorbide mononitrate ER 60 mg Tablet PO (18:07)
--- NOTE | 2021-09-17 18:45 | PC.NURSE ---
Received report from LACY Johnson. Patient is s/p [facility] with right radial access. Dressing in place to wrist remain c,d,i with no s/s of bleeding or hematoma formation observed. Instructed patient on site care and restrictions. Patient verbalized understanding. Patient denies pain or needs. No distress observed. Will continue to monitor.
[2021-09-18 03:18] VITALS: BP 137/81; PULSE 60; RESP 17; TEMP 36.4; O2SAT 94
[2021-09-18 03:59] LABS: Basophils % 0.5 %; Eosinophils # 0.1 10^3/uL (0.0-0.8); Eosinophils % 1.4 %; Hematocrit 36.4 % (42.0-52.0); Hemoglobin 12.2 g/dL (11.7-16.6); Lymphocytes # 1.8 10^3/uL (0.8-4.8); Lymphocytes % 31.7 %; Mean Corpuscular HGB Conc 33.5 g/dL (30.0-36.0); Mean Corpuscular Hemoglobin 31.8 pg (28.0-34.0); Mean Corpuscular Volume 94.8 fl (80-94); Mean Platelet Volume 11.2 fL (7.4-10.4); Monocytes # 0.8 10^3/uL (0.2-0.9); Monocytes % 14.7 %; Neutrophils # 2.84 10^3/uL (1.8-7.7); Neutrophils % 51.2 %; Nucleated Red Blood Cells % 0 %; Platelet Count 149 10^3/cmm (130-400); Red Blood Count 3.84 10^6/uL (4.1-5.3); White Blood Count 5.6 10^3/uL (4.0-10.0)
[2021-09-18 04:25] LABS: Anion Gap 14.5 (5-19); Blood Urea Nitrogen 16 mg/dL (8-23); Calcium 8.9 mg/dL (8.5-10.5); Carbon Dioxide 24 mmol/L (22-29); Chloride 107 mmol/L (98-107); Glucose 107 mg/dL (65-115); Osmolality Calculated 294 mOsm/kg (285-295); Potassium 4.5 mmol/L (3.5-5.1); Sodium 141 mmol/L (136-145)
[2021-09-18 05:29] VITALS: PULSE 55
[2021-09-18] MEDS: pantoprazole DR 40 mg Tablet PO (05:54)
[2021-09-18 07:31] VITALS: BP 153/84; PULSE 64; PULSE 68; RESP 16; RESP 18; TEMP 35.9; O2SAT 96; O2SAT 97
[2021-09-18] MEDS: aspirin 81 mg EC Tablet PO (09:18)
[2021-09-18] MEDS: hyDRALAzine 25 mg Tablet 50 MG PO (09:18)
[2021-09-18] MEDS: zinc gluconate 50 mg Tablet PO (09:18)
[2021-09-18] MEDS: clopidogrel 75 mg Tablet PO (09:19)
[2021-09-18] MEDS: carvedilol 12.5 mg Tablet PO (09:19)
[2021-09-18] MEDS: isosorbide mononitrate ER 60 mg Tablet PO (09:19)
[2021-09-18] MEDS: amlodipine 10 mg Tablet PO (09:19)
[2021-09-18] MEDS: cholecalciferol (vitamin D3) 5,000 unit Tablet 5000 UNIT PO (09:19)
--- NOTE | 2021-09-18 10:21 | P.PN_ITS ---
Subjective Subjective: Patient underwent left heart catheterization with left and right coronary angiogram yesterday. He was found to have a complex proximal to mid LAD lesion. This was intervened. Please refer to Dr. Fam's note for details. Patient had an uneventful postprocedure course. He is remaining stable with no chest pain or shortness of breath. Ambulating on telemetry. Vital signs remained stable. No hematoma or bleeding from the arterial puncture site. Medications: Medication Review Details: Current Medications Acetaminophen (Acetaminophen 325 Mg Tablet) 650 mg PO Q6H PRN PRN Reason: MILD PAIN Al Hydrox/Mg Hydrox/Simethicone (Nibp-Tri-Dagjhyzef-Albert 30 Ml Udc) 30 ml PO Q15M PRN PRN Reason: INDIGESTION Amlodipine Besylate (Amlodipine 10 Mg Tablet) 10 mg PO DAILY [facility] Last Admin: 09/18/21 09:19 Dose: 10 mg Documented by: Aspirin (Aspirin 81 Mg Ec Tablet) 81 mg PO DAILY [facility] Last Admin: 09/18/21 09:18 Dose: 81 mg Documented by: Atropine Sulfate (Atropine 1 Mg/Ml Sdv 1 Ml) 0.5 mg IVP PRN PRN PRN Reason: Symptomatic bradycardia Carvedilol (Carvedilol 12.5 Mg Tablet) 12.5 mg PO BID [facility] Last Admin: 09/18/21 09:19 Dose: 12.5 mg Documented by: Clopidogrel Bisulfate (Clopidogrel 75 Mg Tablet) 75 mg PO DAILY [facility] Last Admin: 09/18/21 09:19 Dose: 75 mg Documented by: Fentanyl (Fentanyl 50 Mcg/Ml Inj 2ml) 50 mcg IVP PRN PRN PRN Reason: Prior to sheath removal Hydralazine HCl (Hydralazine 25 Mg Tablet) 50 mg PO TID [facility] Last Admin: 09/18/21 09:18 Dose: 50 mg Documented by: Sodium Chloride (Sodium Chloride 0.9%) 1,000 mls @ 100 mls/hr IV .Q10H [facility] Last Admin: 09/18/21 05:07 Dose: Not Given Documented by: Isosorbide Mononitrate (Isosorbide Mononitrate Er 60 Mg Tablet) 60 mg PO BID [facility] Last Admin: 09/18/21 09:19 Dose: 60 mg Documented by: Magnesium Hydroxide (Magnesium Hydroxide 30 Ml Udc) 30 ml PO DAILY PRN PRN Reason: CONSTIPATION Naloxone HCl (Naloxone 0.4 Mg/Ml Sdv) 0.1 mg IVP Q2M PRN PRN Reason: RESPIRATORY RATE < 8/MIN Nitroglycerin (Nitroglycerin 0.4 Mg Sublingual Tablet) 0.4 mg SUBLINGUAL Q5M PRN PRN Reason: chest pain Nitroglycerin (Nitroglycerin 0.4 Mg Sublingual Tablet) 0.4 mg SUBLINGUAL Q5M PRN PRN Reason: CHEST PAIN Non-Formulary Medication (Cardio-Plus) 2 tab PO BID [facility] Non-Formulary Medication (Curcumin Tabs) 1 tab PO QAM [facility] Non-Formulary Medication (Enzalutamide [Xtandi]) 160 mg PO BEDTIME [facility] Last Admin: 09/17/21 20:17 Dose: Not Given Documented by: Non-Formulary Medication (Otc Gallbladder Pill) 2 tab PO BID [place] Pantoprazole Sodium (Pantoprazole Dr 40 Mg Tablet) 40 mg PO QAM [facility] Last Admin: 09/18/21 05:54 Dose: 40 mg Documented by: Temazepam (Temazepam 15 Mg Capsule) 15 mg PO BEDTIME PRN PRN Reason: INSOMNIA Vitamin D (Cholecalciferol (Vitamin D3) 5,000 Unit Tablet) 5,000 unit PO DAILY [facility] Last Admin: 09/18/21 09:19 Dose: 5,000 unit Documented by: Zinc Gluconate (Zinc Gluconate 50 Mg Tablet) 50 mg PO DAILY [facility] Last Admin: 09/18/21 09:18 Dose: 50 mg Documented by: Vitals/I&O/Wt Last Vital Signs Temp 96.7 F L 09/18/21 07:31 Pulse 64 09/18/21 07:31 Resp 18 09/18/21 07:31 BP 153/84 09/18/21 07:31 Pulse Ox 96 09/18/21 07:31 09/17/21 09/18/21 09/18/21 22:59 06:59 14:59 Intake Total 480 / 480 1000 / 1480 Output Total 600 / 600 Balance -120 / -120 1000 / 880 Weight last 48 hrs Weight 239 lb Physical Exam Narrative: GENERAL: The patient is alert and oriented times three. Not in any acute distress. HEENT: No significant pallor, icterus or lymphadenopathy.Oral cavity: There are no mucous membrane lesions. NECK: Trachea appears to be central. No masses noted. No JVD or thyromegaly annalee reciated. RESPIRATORY: Chest is symmetrical. No intercostals muscle retraction or any accessory muscle activation. There is no chest wall tenderness. Breath sounds are heard bilaterally. No rales or rhonchi heard. No evidence of any consolidation. BREASTS: Deferred. HEART: The heart sounds are normal. No S3 or S4. No significant murmurs. No pericardial rub ABDOMEN: No vessel pulsations or distention. No tenderness. No organomegaly appreciated. Bowel sounds are normally heard. : Deferred. RECTAL: Deferred. LYMPHATIC: No lymphadenopathy noted in the neck or groin. EXTREMITIES: The radial arterial puncture site has no hematoma or bleeding MUSCULOSKELETAL: No acute joint deformities or swelling SKIN: There are no significant rashes or ecchymosis NEUROPSYCHIATRIC: The patient is alert and oriented x3. Appears to be in a good mood. No tremors or rigidity noted. Data : 09/18/21 03:20 09/18/21 03:20 Other Labs: Laboratory Last Values WBC 5.6 10^3/uL (4.0-10.0) 09/18/21 03:20 RBC 3.84 10^6/uL (4.1-5.3) L 09/18/21 03:20 Hgb 12.2 g/dL (11.7-16.6) 09/18/21 03:20 Hct 36.4 % (42.0-52.0) L 09/18/21 03:20 MCV 94.8 fl (80-94) H 09/18/21 03:20 MCH 31.8 pg (28.0-34.0) 09/18/21 03:20 MCHC 33.5 g/dL (30.0-36.0) 09/18/21 03:20 RDW 13.0 % (12.1-15.1) 09/18/21 03:20 Plt Count 149 10^3/cmm (130-400) 09/18/21 03:20 MPV 11.2 fL (7.4-10.4) H 09/18/21 03:20 Neut % (Auto) 51.2 % 09/18/21 03:20 Lymph % (Auto) 31.7 % 09/18/21 03:20 [place] % (Auto) 14.7 % 09/18/21 03:20 Eos % (Auto) 1.4 % 09/18/21 03:20 Baso % (Auto) 0.5 % 09/18/21 03:20 Neut # (Auto) 2.84 10^3/uL (1.8-7.7) 09/18/21 03:20 Lymph # (Auto) 1.8 10^3/uL (0.8-4.8) 09/18/21 03:20 [place] # (Auto) 0.8 10^3/uL (0.2-0.9) 09/18/21 03:20 Eos # (Auto) 0.1 10^3/uL (0.0-0.8) 09/18/21 03:20 Baso # (Auto) 0.0 10^3/uL (0.0-0.1) 09/18/21 03:20 Nucleated RBC % (auto) 0 % 09/18/21 03:20 Nucleated RBCs # 0.0 /100WBC 09/18/21 03:20 Sodium 141 mmol/L (136-145) 09/18/21 03:20 Potassium 4.5 mmol/L (3.5-5.1) 09/18/21 03:20 Chloride 107 mmol/L (98-107) 09/18/21 03:20 Carbon Dioxide 24 mmol/L (22-29) 09/18/21 03:20 Anion Gap 14.5 (5-19) 09/18/21 03:20 BUN 16 mg/dL (8-23) 09/18/21 03:20 Creatinine 0.8 mg/dL (0.7-1.2) 09/18/21 03:20 GFR Calculation Not Reportable 09/18/21 03:20 Glucose 107 mg/dL (65-115) 09/18/21 03:20 Calculated Osmolality 294 mOsm/kg (285-295) 09/18/21 03:20 Calcium 8.9 mg/dL (8.5-10.5) 09/18/21 03:20 A&P Assessment and plan (1) Atherosclerotic heart disease of [place] coronary artery with other forms of angina pectoris: Patient status post complex PCI of the LAD lesions. Currently seems to be stable. May continue on the current medications. Patient will be kept on the Plavix and aspirin. Other medications may be continued. Status: Acute (2) Benign essential hypertension with target blood pressure below 140/90: The blood pressure seems to be in the normal range. We will continue on the current medications. Status: Acute (3) Dyslipidemia: I will go and start him on Crestor 10 mg p.o. daily. Status: Acute (4) SVT (supraventricular tachycardia): May continue on the current medication. Status: Acute Plan [facility] in 1 week Patient will be seen by me in 1 month Patient is advised to continue the medications as mentioned above. The importance of compliance to diet, medications and exercise were discussed. In the event of the patient developing chest pain ,unusual palpitations or any new symptoms, is advised to contact me or come to the hospital. 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
[2021-09-18 10:30] VITALS: BP 153/84; PULSE 64; RESP 18; TEMP 35.9; O2SAT 96
== END 2021-09-18 10:49 | disposition home or self-care (01) ==
LOC: CSU 09:50
PROVIDERS: Internal Medicine; Admitting Provider Internal Medicine Cardiovascular Disease; PCP Student in an Organized Health Care Education/Training Program; Visit Provider Internal Medicine Cardiovascular Disease
DX: I25.118 Atherosclerotic heart disease of native coronary artery with other forms of angina pectoris (principal); I10 Essential (primary) hypertension; E78.5 Hyperlipidemia, unspecified; I47.1 Supraventricular tachycardia; K21.9 Gastro-esophageal reflux disease without esophagitis
CPT/HCPCS: 36415; 80048; 85025; 85347; 93452; 93458; C1724; C1725; C1769; C1874; C1887; C1894; C9602; G0378; J1644; J2250; J3010; J3490; J7030; Q0163; Q9967

== ENCOUNTER → 2021-10-01 10:46 | Outpatient (BNVA) | payer MEDICARE, OTHER, SELFPAY | PROVIDERS: PCP Student in an Organized Health Care Education/Training Program; Visit Provider Nurse Practitioner Family | DX: I25.118 Atherosclerotic heart disease of native coronary artery with other forms of angina pectoris (principal); I11.9 Hypertensive heart disease without heart failure; Z87.891 Personal history of nicotine dependence | CPT/HCPCS: 36415; 80048; 99214 ==

== ENCOUNTER → 2021-11-06 09:37 | Outpatient (BNVA) | payer MEDICARE, OTHER, SELFPAY | PROVIDERS: PCP Student in an Organized Health Care Education/Training Program; Visit Provider Internal Medicine Cardiovascular Disease | DX: I25.118 Atherosclerotic heart disease of native coronary artery with other forms of angina pectoris (principal); E78.5 Hyperlipidemia, unspecified; I10 Essential (primary) hypertension; I47.1 Supraventricular tachycardia; R06.00 Dyspnea, unspecified; Z86.16 Personal history of COVID-19; Z87.891 Personal history of nicotine dependence; Z79.82 Long term (current) use of aspirin | CPT/HCPCS: 99214 ==

== ENCOUNTER → 2022-05-13 11:34 | Outpatient (BNVA) | payer MEDICARE, OTHER, SELFPAY | PROVIDERS: PCP Student in an Organized Health Care Education/Training Program; Visit Provider Internal Medicine Cardiovascular Disease | DX: I25.118 Atherosclerotic heart disease of native coronary artery with other forms of angina pectoris (principal); R55 Syncope and collapse; E78.5 Hyperlipidemia, unspecified; I10 Essential (primary) hypertension; I47.1 Supraventricular tachycardia; Z87.891 Personal history of nicotine dependence | CPT/HCPCS: 99214 ==

== ENCOUNTER → 2022-07-04 13:54 | Outpatient (BNVA) | payer MEDICARE, OTHER, SELFPAY | PROVIDERS: PCP Family Medicine; Visit Provider Internal Medicine Cardiovascular Disease | DX: I48.0 Paroxysmal atrial fibrillation (principal); E78.5 Hyperlipidemia, unspecified; I25.118 Atherosclerotic heart disease of native coronary artery with other forms of angina pectoris; I10 Essential (primary) hypertension; Z87.891 Personal history of nicotine dependence; Z79.01 Long term (current) use of anticoagulants | CPT/HCPCS: 80061; 80076; 99214 ==

== ENCOUNTER → 2022-12-16 15:16 | Outpatient (BNVA) | payer MEDICARE, OTHER, SELFPAY | PROVIDERS: PCP Family Medicine; Visit Provider Specialist | DX: I25.118 Atherosclerotic heart disease of native coronary artery with other forms of angina pectoris (principal); I48.91 Unspecified atrial fibrillation; E78.5 Hyperlipidemia, unspecified; I10 Essential (primary) hypertension; Z87.891 Personal history of nicotine dependence | CPT/HCPCS: 99214 ==

== ENCOUNTER → 2023-06-09 15:11 | Outpatient (BNVA) | payer MEDICARE, OTHER, SELFPAY | PROVIDERS: PCP Family Medicine; Visit Provider Internal Medicine Cardiovascular Disease | DX: I48.0 Paroxysmal atrial fibrillation (principal); I10 Essential (primary) hypertension; E78.5 Hyperlipidemia, unspecified; I25.118 Atherosclerotic heart disease of native coronary artery with other forms of angina pectoris; R06.00 Dyspnea, unspecified; Z87.891 Personal history of nicotine dependence | CPT/HCPCS: 99214 ==

== ENCOUNTER → 2023-12-10 11:32 | Outpatient (BNVA) | payer MEDICARE, OTHER, SELFPAY | PROVIDERS: PCP Family Medicine; Visit Provider Internal Medicine Cardiovascular Disease | DX: R07.9 Chest pain, unspecified (principal); I48.0 Paroxysmal atrial fibrillation; R06.00 Dyspnea, unspecified; R06.02 Shortness of breath | CPT/HCPCS: 93005 ==

== ENCOUNTER 2023-12-29 09:49 | Outpatient (CLI) | payer MEDICARE, OTHER, SELFPAY ==
--- NOTE | 2023-12-29 10:00 | USCV_ITS ---
Stiven Washington Age: 83 Gender: M : 1940 Exam Date: 12/29/2023 09:59 Ordering Phys: Deric Thomas MD ([email or web address]) Technologist: CT [place] [facility] [place]: chf BP: 108 / 72 HR: 62 Rhythm: Sinus Technical Quality: Adequate MEASUREMENTS (Male / Female) Normal Values 2D ECHO LVOT Diameter 2.2 cm LV Ejection Fraction MOD 2C 71.1 % LV Ejection Fraction 2C AL 73.1 % LA Diameter 4.6 cm RA Systolic Volume 4C AL 55.3 ml RA Systolic Volume 4C MOD 55.9 ml LA Sys Volume AL 60.0 cm cubed LA Sys Volume Index AL 25.7 cm cubed/m squared Aorta at Sinotubular Diameter 2.8 cm M-MODE LA Ao Ratio MM 1.5 AV Cusp Separation MM 1.9 cm DOPPLER AV Peak Velocity 144.0 cm/s LVOT Peak Velocity 102.0 cm/s AV Area Cont Eq vti 2.9 cm squared AV Area Cont Eq pk 2.7 cm squared MV Peak Velocity 115.0 cm/s MV Area PHT 2.6 cm squared Mitral E to A Ratio 0.8 TV Peak Velocity 225.7 cm/s TR Peak Velocity 248.0 cm/s TR Peak Gradient 24.6 mmHg TV Peak E Velocity 63.0 cm/s Right Atrial Pressure 3.0 mmHg Pulmonary Artery Systolic Pressu 27.6 mmHg PV Peak Velocity 102.5 cm/s FINDINGS Left Ventricle Normal left ventricular size and systolic function, EF of 73%. No regional wall motion abnormalities.Grade I/IV diastolic dysfunction (abnormal relaxation filling pattern), normal to mildly elevated filling pressures. Right Ventricle The right ventricle is normal in size and function. Right Atrium The right atrium is normal in size. Left Atrium Appears to be upper limit of normal size Mitral Valve No gross abnormalities noted Aortic Valve No gross abnormalities noted Tricuspid Valve Trace tricuspid valve regurgitation. Estimated pulmonary artery peak systolic pressure 28 mmHg Pulmonic Valve No gross abnormalities noted Pericardium Normal pericardium without effusion. Aorta Normal ascending aorta dimension. IVC Inferior vena cava not visualized. CONCLUSIONS Normal left ventricular size and systolic function, EF of 73%. No regional wall motion abnormalities.Grade I/IV diastolic dysfunction (abnormal relaxation filling pattern), normal to mildly elevated filling pressures. Left atrium, upper limit of normal size. Trace tricuspid valve regurgitation. Estimated pulmonary artery peak systolic pressure of 28 mmHg. There is no pericardial effusion. There are no intracardiac masses. No similar previous studies are available for comparison Dr Deric Thomas MD [facility] (Electronically Signed) Final Date: 06 January 2024 09:07 S
== END 2023-12-29 09:50 | disposition home or self-care (01) ==
LOC: RAD 09:50
PROVIDERS: PCP Family Medicine; Visit Provider Internal Medicine Cardiovascular Disease
DX: I50.30 Unspecified diastolic (congestive) heart failure (principal); I48.0 Paroxysmal atrial fibrillation; R06.00 Dyspnea, unspecified
CPT/HCPCS: 36415; 80048; 83880; 93306; 99214

== ENCOUNTER 2024-01-20 10:23 | Outpatient (CLI) | payer MEDICARE, OTHER, SELFPAY ==
[2024-01-20 11:16] LABS: NT Pro B Type Natriuretic Pept 198 pg/mL (0-450)
== END 2024-01-20 10:24 | disposition home or self-care (01) ==
LOC: LAB 10:25
PROVIDERS: PCP Family Medicine; Visit Provider Internal Medicine Cardiovascular Disease
DX: R06.02 Shortness of breath (principal)
CPT/HCPCS: 36415; 83880

== ENCOUNTER → 2024-06-17 12:34 | Outpatient (BNVA) | payer MEDICARE, OTHER, SELFPAY | PROVIDERS: PCP Family Medicine; Visit Provider Internal Medicine Cardiovascular Disease | DX: R06.02 Shortness of breath (principal) | CPT/HCPCS: 36415; 80048; 83880 ==

== ENCOUNTER → 2025-05-31 14:47 | Outpatient (BNVA) | payer MEDICARE, SELFPAY | PROVIDERS: PCP Family Medicine; Visit Provider Internal Medicine Cardiovascular Disease | DX: I25.10 Atherosclerotic heart disease of native coronary artery without angina pectoris (principal); E78.5 Hyperlipidemia, unspecified; I48.0 Paroxysmal atrial fibrillation; I11.0 Hypertensive heart disease with heart failure; I50.30 Unspecified diastolic (congestive) heart failure; Z87.891 Personal history of nicotine dependence; R06.02 Shortness of breath | CPT/HCPCS: 80048; 83880; 99214 ==